=== PATIENT | male | born 1975 | race Two or more races ===

== ENCOUNTER 2019-02-20 16:09 | Inpatient (IN) | payer OTHER ==
[2019-02-20 18:52] VITALS: BMI 38.0
--- NOTE | 2019-02-20 20:43 | HP ---
COWS - Scale Resting Pulse: 0= [place] 80 or Below Sweatin= Chills/Flushing Restless Observation: 1= Difficult to Sit Still Pupil Size: 1= Pupils >than Normal Bone or Joint Aches: 1= Mild Discomfort Runny Nose/ Eye Tearin= Nasal Congestion GI Upset > 30mins: 1= Stomach Cramp Tremor Observation: 2= Slight Tremor Visible Yawning Observation: 0= None Anxiety or Irritability: 1=Feels Anxious/Irritable Goose Flesh Skin: 0=Smooth Skin COWS Score: 9 CIWA Score - Admission Criteria [facility] Guidelines: Admission for Medically Managed Detox: Requires at least one of the followin. CIWA greater than 12 2. Seizures within the past 24 hours 3. Delirium tremens within the past 24 hours 4. Hallucinations within the past 24 hours 5. Acute intervention needed for co occurring medical disorder 6. Acute intervention needed for co occurring psychiatric disorder 7. Severe withdrawal that cannot be handled at a lower level of care (continued vomiting, continued diarrhea, abnormal vital signs) requiring intravenous medication and/or fluids 8. Admitting History and Physical - Primary Care Physician PCP: none - Admission Chief Complaint: I have been using heroin, methadoneand crack over the past 10 days and I need to detox. History of Present Illness: 43 y/o m pt with h/o heroin dep (nasal Use )since age 37. Pt has been drug free x 8m and then relapsed again recently .Now pt is seeking detox . Pt was sent for detox by [facility]. The pt has pending court case and states he has to detox. History Source: Patient Limitations to Obtaining History: No Limitations - Past Medical History Gastrointestinal: Yes: Constipation Psych: Yes: Addictions (heroin/ crack-cocaine/ alcohol) Musculoskeletal: Yes: Chronic low back pain - Past Surgical History Past Surgical History: Yes: None - Smoking History Smoking history: Current every day smoker Have you smoked in the past 12 months: Yes Aproximately how many cigarettes per day: 10 - Alcohol/Substance Use Hx Alcohol Use: Yes History of Substance Use: reports: Cocaine, Heroin Date of Last Use: 02/18/19 - Social History Usual Living Arrangement: Yes: Other (residential program) Do you think of yourself as: Straight/Heterosexual ADL: Independent History of Recent Travel: No Admission ROS S - HPI Chief Complaint: I need to detox from heroin/methadone . Allergies/Adverse Reactions: Allergies Allergy/AdvReac Type Severity Reaction Status Date / Time No Known Allergies Allergy Verified 02/20/19 18:42 History of Present Illness: see HPI, PMHX Exam Limitations: No Limitations - Ebola screening Have you traveled outside of the country in the last 21 days: No (N) Have you had contact with anyone from an Ebola affected area: No Have you been sick,other than usual withdrawal symptoms: No Do you have a fever: No - Review of Systems Constitutional: Chills, Malaise, Changes in sleep EENT: reports: Nose Congestion Respiratory: reports: No Symptoms reported Cardiac: reports: No Symptoms Reported GI: reports: Abdominal cramping Musculoskeletal: reports: Back Pain Integumentary: reports: No Symptoms Reported Neuro: reports: No Symptoms reported Endocrine: reports: No Symptoms Reported Hematology: reports: No Symptoms Reported Psychiatric: reports: No Sypmtoms Reported Other Systems: Reviewed and Negative Patient History - Patient Medical History Hx Anemia: No Hx Asthma: No Hx Chronic Obstructive Pulmonary Disease (COPD): No Hx Cancer: No Hx Cardiac Disorders: No Hx Congestive Heart Failure: No Hx Hypertension: No Hx Hypercholesterolemia: Yes Hx Pacemaker: No HX Cerebrovascular Accident: No Hx Seizures: No Hx Dementia: No Hx Diabetes: No Hx Gastrointestinal Disorders: No Hx Liver Disease: No Hx Genitourinary Disorders: No Hx Sexually Transmitted Disorders: No Hx Renal Disease (ESRD): No Hx Thyroid Disease: No Hx Human Immunodeficiency Virus (HIV): No Hx Hepatitis C: No Hx Depression: No Hx Suicide Attempt: No Hx Bipolar Disorder: No Hx Schizophrenia: No - Patient Surgical History Past Surgical History: No Hx Neurologic Surgery: No Hx Cataract Extraction: No Hx Cardiac Surgery: No Hx Lung Surgery: No Hx Breast Surgery: No Hx Breast Biopsy: No Hx Abdominal Surgery: No Hx Appendectomy: No Hx Cholecystectomy: No Hx Genitourinary Surgery: No Hx Section: No Hx Orthopedic Surgery: No - PPD History Date: 07/04/14 - Reproductive History Patient is a Female of Child Bearing Age (11 -55 yrs old): No - Smoking Cessation Smoking history: Current every day smoker Have you smoked in the past 12 months: Yes Aproximately how many cigarettes per day: 10 Cigars Per Day: 0 Hx Chewing Tobacco Use: No Initiated information on smoking cessation: Yes 'Breaking Loose' booklet given: 02/20/19 - Substance & Tx. History Hx Alcohol Use: Yes Hx Substance Use: Yes Substance Use Type: Alcohol, Cocaine, Heroin Hx Substance Use Treatment: Yes - Substances abused Alcohol Substance route: Oral Frequency: Daily Amount used: 4 to 6 cans Age of first use: 28 Date of last use: 02/20/19 Crack Other (specify): cocaine Substance route: Smoking Frequency: Daily Amount used: 60 to 100 dollars Age of first use: 39 Date of last use: 02/19/19 Heroin Substance route: Inhalation Frequency: Daily Amount used: 5 bags Age of first use: 40 Date of last use: 02/18/19 Non-Rx Methadone Substance route: Oral Frequency: 1-2 times per week Age of first use: 38 Date of last use: 02/18/19 Admission Physical Exam [facility] - Vital Signs Vital Signs: Vital Signs - 24 hr 02/20/19 02/20/19 18:41 19:29 Temperature 97.2 F L 97.2 F L Pulse Rate 70 70 Respiratory 16 16 Rate Blood Pressure 128/86 128/86 - Physical General Appearance: Yes: Obese, Irritable, Anxious HEENTM: Yes: EOMI, Hearing grossly Normal, Normocephalic, Normal Voice, LYNNE Neck: Yes: No masses,lesions,Nodules, Supple, Trachea in good position Breast: Yes: Within Normal Limits Cardiology: Yes: Regular Rhythm, Regular Rate, S1, S2 Abdominal: Yes: Non Tender, Soft, Protuberent Genitourinary: Yes: Within Normal Limits Back: Yes: Decreased Range of Motion Musculoskeletal: Yes: Back pain Extremities: Yes: Tremors (mild) Neurological: Yes: trim mounter II-XII NML intact, Fully Oriented, Alert, Motor Strength 5/5 Integumentary: Yes: Other (lbil lower extremity small ulcers) Cleared for Admission [facility] - Detox or Rehab [facility] Level of Care: Medically Managed Detox Regimen/Protocol: Methadone/Valium Breathalyzer - Breathalyzer Breathalyzer: 0 Urine Drug Screen - Test Device Lot number: [id number] Expiration date: 10/03/20 - Control Is test valid?: Yes - Results Drug screen NEGATIVE: No Urine drug screen results: FEN-Fentanyl, MTD-Methadone, BZO-Benzodiazepines, BUP -Suboxone Inpatient Rehab Admission - Rehab Decision to Admit Inpatient rehab admission?: No
[2019-02-20] MEDS ORDERED: ACETAMINOPHEN 325 MG TABLET (FP) PO PRN ×2 (21:08)
[2019-02-20] MEDS ORDERED: BACLOFEN 10 MG TABLET (FP) PO PRN (21:08)
[2019-02-20] MEDS ORDERED: MELATONIN 5 MG TABLETS PO PRN (21:08)
[2019-02-20] MEDS ORDERED: BISMUTH SUBSALICYLATE 524 MG/30 ML UD PO PRN (21:08)
[2019-02-20] MEDS ORDERED: METHOCARBAMOL 500 MG TABLET PO PRN (21:08)
[2019-02-20] MEDS ORDERED: METHADONE HCL 10 MG TABLET (FOR DETOX USE ONLY) PO ONE (21:08)
[2019-02-20] MEDS ORDERED: MAGNESIUM HYDROX 2400MG/30ML ORAL SUSPENSION 30 ML CUP PO PRN (21:08)
[2019-02-20] MEDS ORDERED: hydrOXYzine PAMOATE 25 MG CAPSULE (FP) PO PRN (21:08)
[2019-02-20] MEDS ORDERED: cloNIDine HCL 0.1 MG TABLET PO PRN (21:08)
[2019-02-20] MEDS ORDERED: IBUPROFEN 400 MG TABLET (FP) PO PRN (21:08)
[2019-02-20] MEDS ORDERED: MAG HYDROX/AL HYDROX/SIMETH 30 ML UNIT-DOSE CUP PO PRN (21:08)
[2019-02-20] MEDS ORDERED: MENTHOL/PHENOL 1 EACH UD MM PRN (21:08)
[2019-02-20] MEDS ORDERED: MAGNESIUM CITRATE 300 ML BOTTLE PO PRN (21:08)
[2019-02-20] MEDS ORDERED: diazePAM 5 MG TABLET PO PRN (21:12)
[2019-02-20] MEDS: THIAMINE HCL 100 MG TABLET (FP) PO SCH (21:41)
[2019-02-21 09:55] LABS: HEMATOCRIT 37.1 % (35.4-49); HEMOGLOBIN 12.6 GM/dL (11.7-16.9); MCH 29.7 pg (25.7-33.7); MEAN CELL VOLUME 87.5 fl (80-96); MEAN PLT VOLUME 8.9 fl (7.5-11.1); PLATELET COUNT 249 K/MM3 (134-434); RBC 4.24 M/mm3 (4.00-5.60); RDW 13.5 % (11.9-15.9); WHITE BLOOD COUNT 7.2 K/mm3 (4.0-10.0)
[2019-02-21] MEDS ORDERED: METHADONE HCL 5 MG TABLET (FOR DETOX USE ONLY) PO ONE (10:00)
[2019-02-21 10:16] LABS: ALBUMIN 2.8 g/dl (3.4-5.0); BILIRUBIN,TOTAL 0.3 mg/dL (0.2-1); BLOOD UREA NITROGEN 9.6 mg/dL (7-18); CALCIUM 8.6 mg/dL (8.5-10.1); CREATININE 0.8 mg/dL (0.55-1.3); POTASSIUM 4.2 mmol/L (3.5-5.1); TOT PROT 6.4 g/dl (6.4-8.2)
[2019-02-21] MEDS: PRENATAL VITAMINS W/ FOLIC ACID TABLET (FP) PO SCH (10:35)
--- NOTE | 2019-02-21 11:38 | PN ---
S CIWA - CIWA Score Nausea/Vomitin-Mild Nausea/No Vomiting Muscle Tremors: 3 Anxiety: 2 Agitation: 1-Slight > Activity Paroxysmal Sweats: 2 Orientation: 0-Oriented Tacttile Disturbances: 0-None Auditory Disturbances: 0-None Visual Disturbances: 0-None Headache: 1-Very Mild CIWA-Ar Total Score: 10 S COWS - Scale Resting Pulse: 0= [place] 80 or Below Sweatin= Chills/Flushing Restless Observation: 0= Sits Still Pupil Size: 1= Pupils >than Normal Bone or Joint Aches: 1= Mild Discomfort Runny Nose/ Eye Tearin= None GI Upset > 30mins: 1= Stomach Cramp Tremor Observation of Outstretched Hands: 1= Tremor [place], Not Seen Yawning Observation: 0= None Anxiety or Irritability: 1=Feels Anxious/Irritable Goose Flesh Skin: 0=Smooth Skin COWS Score: 6 BHS Progress Note (SOAP) Subjective: 43 years old male admitted on 02/20/19 for opiate withdrawal sx management treating with methadone detox regimen patient tolerated well the patient has both suboxone and methadone in urine tox upon admission prefers librium instead of valium and clonidine prn for alcohol withdrawal sx management discontinue valium and clonodine begin librium prn Objective: 02/21/19 11:35 Vital Signs Temperature 96 F L 02/21/19 09:18 Pulse Rate 75 02/21/19 09:18 Respiratory Rate 18 02/21/19 09:18 Blood Pressure 105/73 02/21/19 09:18 O2 Sat by Pulse Oximetry (%) Laboratory Last Values WBC 7.2 K/mm3 (4.0-10.0) 02/21/19 08:00 RBC 4.24 M/mm3 (4.00-5.60) 02/21/19 08:00 Hgb 12.6 GM/dL (11.7-16.9) 02/21/19 08:00 Hct 37.1 % (35.4-49) 02/21/19 08:00 MCV 87.5 fl (80-96) 02/21/19 08:00 MCH 29.7 pg (25.7-33.7) 02/21/19 08:00 MCHC 34.0 g/dl (32.0-35.9) 02/21/19 08:00 RDW 13.5 % (11.9-15.9) 02/21/19 08:00 Plt Count 249 K/MM3 (134-434) 02/21/19 08:00 MPV 8.9 fl (7.5-11.1) 02/21/19 08:00 Sodium 142 mmol/L (136-145) 02/21/19 08:00 Potassium 4.2 mmol/L (3.5-5.1) 02/21/19 08:00 Chloride 106 mmol/L (98-107) 02/21/19 08:00 Carbon Dioxide 28 mmol/L (21-32) 02/21/19 08:00 Anion Gap 8 MMOL/L (8-16) 02/21/19 08:00 BUN 9.6 mg/dL (7-18) 02/21/19 08:00 Creatinine 0.8 mg/dL (0.55-1.3) 02/21/19 08:00 Est GFR (CKD-EPI)AfAm 127.70 02/21/19 08:00 Est GFR (CKD-EPI)NonAf 110.18 02/21/19 08:00 Random Glucose 198 mg/dL (74-106) H 02/21/19 08:00 Calcium 8.6 mg/dL (8.5-10.1) 02/21/19 08:00 Total Bilirubin 0.3 mg/dL (0.2-1) 02/21/19 08:00 AST 44 U/L (15-37) H 02/21/19 08:00 ALT 82 U/L (13-61) H 02/21/19 08:00 Alkaline Phosphatase 83 U/L (45-117) 02/21/19 08:00 Total Protein 6.4 g/dl (6.4-8.2) 02/21/19 08:00 Albumin 2.8 g/dl (3.4-5.0) L 02/21/19 08:00 lab noted 02/21/19 11:37 bgm x 1 discontinue regular diet begin no concentrated sugar diet encourage weight loss Assessment: 02/21/19 11:38 alcohol and opiate withdrawal 02/21/19 11:38 Plan: librium prn and methadone detox regimens
[2019-02-21] MEDS: chlordiazePOXIDE 5 MG CAPSULE PO PRN ×2 (14:03→22:12)
[2019-02-21] MEDS: THIAMINE HCL 100 MG TABLET (FP) PO SCH (22:12)
[2019-02-22] MEDS: chlordiazePOXIDE HCL 10 MG CAPSULE PO PRN ×2 (07:55→19:34)
[2019-02-22] MEDS ORDERED: METHADONE HCL 10 MG TABLET (FOR DETOX USE ONLY) PO ONE (10:00)
[2019-02-22] MEDS: PRENATAL VITAMINS W/ FOLIC ACID TABLET (FP) PO SCH (10:21)
--- NOTE | 2019-02-22 13:01 | PN ---
BHS COWS - Scale Resting Pulse: 1= [place] 81-100 Sweatin= Chills/Flushing Restless Observation: 1= Difficult to Sit Still Pupil Size: 1= Pupils >than Normal Bone or Joint Aches: 0= None Runny Nose/ Eye Tearin= None GI Upset > 30mins: 0= None Tremor Observation of Outstretched Hands: 0= None Yawning Observation: 0= None Anxiety or Irritability: 1=Feels Anxious/Irritable Goose Flesh Skin: 0=Smooth Skin COWS Score: 5 BHS Progress Note (SOAP) Subjective: Pt completing opioid detox- says he is going home tomorrow. d/w MAT methadone/ suboxone. No home meds. O: Vital Signs - 24 hr 02/21/19 02/21/19 02/21/19 13:28 18:00 23:45 Temperature 98.5 F 97.1 F L 96.5 F L Pulse Rate 78 76 85 Respiratory 18 18 18 Rate Blood Pressure 111/69 111/70 104/65 02/22/19 02/22/19 02/22/19 03:30 06:40 09:09 Temperature 98.9 F 97.9 F Pulse Rate 72 76 Respiratory 18 18 18 Rate Blood Pressure 110/65 102/61 Laboratory Tests 02/21/19 02/21/19 02/21/19 08:00 08:00 08:00 WBC 7.2 RBC 4.24 Hgb 12.6 Hct 37.1 MCV 87.5 MCH 29.7 MCHC 34.0 RDW 13.5 Plt Count 249 MPV 8.9 Sodium 142 Potassium 4.2 Chloride 106 Carbon Dioxide 28 Anion Gap 8 BUN 9.6 Creatinine 0.8 Est GFR (CKD-EPI)AfAm 127.70 Est GFR (CKD-EPI)NonAf 110.18 POC Glucometer Random Glucose 198 H Fasting Glucose Calcium 8.6 Total Bilirubin 0.3 AST 44 H ALT 82 H Alkaline Phosphatase 83 Total Protein 6.4 Albumin 2.8 L RPR Titer Nonreactive 02/21/19 02/22/19 12:55 08:00 WBC RBC Hgb Hct MCV MCH MCHC RDW Plt Count MPV Sodium Potassium Chloride Carbon Dioxide Anion Gap BUN Creatinine Est GFR (CKD-EPI)AfAm Est GFR (CKD-EPI)NonAf POC Glucometer 206 Random Glucose Fasting Glucose 105 Calcium Total Bilirubin AST ALT Alkaline Phosphatase Total Protein Albumin RPR Titer a/p: continue opioid detox protocol with methadone d/c anticipated for tomorrow
[2019-02-22 18:18] LABS: PH,URINE 7.5 (5.0-8.0); URINE APPEARANCE CLEAR; URINE BILIRUBIN NEGATIVE (NEGATIVE); URINE COLOR YELLOW; URINE GLUCOSE (UA) NEGATIVE (NEGATIVE); URINE KETONE NEGATIVE (NEGATIVE); URINE LEUK ESTERASE NEGATIVE (NEGATIVE); URINE NITRITE NEGATIVE (NEGATIVE); URINE PROTEIN NEGATIVE (NEGATIVE); URINE UROBILINOGEN 0.2 mg/dL (0.2-1.0)
[2019-02-22] MEDS: THIAMINE HCL 100 MG TABLET (FP) PO SCH (22:05)
[2019-02-23] MEDS ORDERED: chlordiazePOXIDE HCL 10 MG CAPSULE PO PRN (00:01)
[2019-02-23] MEDS ORDERED: METHADONE HCL 5 MG TABLET (FOR DETOX USE ONLY) PO ONE (06:00)
[2019-02-23 09:26] VITALS: PULSE 81
[2019-02-23] MEDS: PRENATAL VITAMINS W/ FOLIC ACID TABLET (FP) PO SCH (10:32)
[2019-02-23 13:40] VITALS: BP 102/68; TEMP 98
--- NOTE | 2019-02-23 13:43 | DS ---
[facility] Detox Discharge Summary Admission Date: 02/20/19 Discharge Date: 02/23/19 - History Present History: Alcohol Dependence, Cocaine Dependence, Opioid Dependence Additional Comments: Pt is medically cleared and is discharged today. Pt completed the detox protocol. Pt is encouraged to follow-up with an outpatient CD program and also to follow-up with his pmd. Pt verbalized understanding. Pt is alert and oriented x3 and in no acute respiratory distress. Pertinent Past History: h/o opiates use disorder. - Physical Exam Results Vital Signs: Vital Signs Temperature 98.0 F 02/23/19 13:39 Pulse Rate 81 02/23/19 13:39 Respiratory Rate 18 02/23/19 13:39 Blood Pressure 102/68 02/23/19 13:39 O2 Sat by Pulse Oximetry (%) Vital Signs 02/23/19 02/23/19 02/23/19 06:39 09:25 13:39 Temperature 100.3 F H 97.9 F 98.0 F Pulse Rate 76 81 81 Respiratory 20 20 18 Rate Blood Pressure 98/53 L 109/70 102/68 Laboratory Last Values WBC 7.2 K/mm3 (4.0-10.0) 02/21/19 08:00 RBC 4.24 M/mm3 (4.00-5.60) 02/21/19 08:00 Hgb 12.6 GM/dL (11.7-16.9) 02/21/19 08:00 Hct 37.1 % (35.4-49) 02/21/19 08:00 MCV 87.5 fl (80-96) 02/21/19 08:00 MCH 29.7 pg (25.7-33.7) 02/21/19 08:00 MCHC 34.0 g/dl (32.0-35.9) 02/21/19 08:00 RDW 13.5 % (11.9-15.9) 02/21/19 08:00 Plt Count 249 K/MM3 (134-434) 02/21/19 08:00 MPV 8.9 fl (7.5-11.1) 02/21/19 08:00 Sodium 142 mmol/L (136-145) 02/21/19 08:00 Potassium 4.2 mmol/L (3.5-5.1) 02/21/19 08:00 Chloride 106 mmol/L (98-107) 02/21/19 08:00 Carbon Dioxide 28 mmol/L (21-32) 02/21/19 08:00 Anion Gap 8 MMOL/L (8-16) 02/21/19 08:00 BUN 9.6 mg/dL (7-18) 02/21/19 08:00 Creatinine 0.8 mg/dL (0.55-1.3) 02/21/19 08:00 Est GFR (CKD-EPI)AfAm 127.70 02/21/19 08:00 Est GFR (CKD-EPI)NonAf 110.18 02/21/19 08:00 POC Glucometer 206 UNITS (80-120) 02/21/19 12:55 Random Glucose 198 mg/dL (74-106) H 02/21/19 08:00 Fasting Glucose 105 mg/dL (74-106) 02/22/19 08:00 Calcium 8.6 mg/dL (8.5-10.1) 02/21/19 08:00 Total Bilirubin 0.3 mg/dL (0.2-1) 02/21/19 08:00 AST 44 U/L (15-37) H 02/21/19 08:00 ALT 82 U/L (13-61) H 02/21/19 08:00 Alkaline Phosphatase 83 U/L (45-117) 02/21/19 08:00 Total Protein 6.4 g/dl (6.4-8.2) 02/21/19 08:00 Albumin 2.8 g/dl (3.4-5.0) L 02/21/19 08:00 Urine Color Yellow 02/22/19 13:45 Urine Appearance Clear 02/22/19 13:45 Urine pH 7.5 (5.0-8.0) D 02/22/19 13:45 Ur Specific Mobile 1.019 (1.010-1.035) 02/22/19 13:45 Urine Protein Negative (NEGATIVE) 02/22/19 13:45 Urine Glucose (UA) Negative (NEGATIVE) 02/22/19 13:45 Urine Ketones Negative (NEGATIVE) 02/22/19 13:45 Urine Blood Negative (NEGATIVE) 02/22/19 13:45 Urine Nitrite Negative (NEGATIVE) 02/22/19 13:45 Urine Bilirubin Negative (NEGATIVE) 02/22/19 13:45 Urine Urobilinogen 0.2 mg/dL (0.2-1.0) 02/22/19 13:45 Ur Leukocyte Esterase Negative (NEGATIVE) 02/22/19 13:45 RPR Titer Nonreactive (NONREACTIVE) 02/21/19 08:00 Labs noted. Pertinent Admission Physical Exam Findings: withdrawal symptoms. - Treatment Hospital Course: Detox Protocol Followed, Detoxed Safely, Responded well, Discharged Condition Good - Medication Discharge Medications: Ambulatory Orders Atorvastatin Ca [Lipitor] 20 mg PO HS 07/02/14 - Diagnosis (1) Cocaine dependence Current Visit: No Status: Acute (2) Hypercholesterolemia Current Visit: No Status: Acute (3) Nicotine addiction Current Visit: No Status: Acute (4) Alcohol use disorder Current Visit: Yes Status: Chronic (5) Heroin use disorder, mild, abuse Current Visit: Yes Status: Chronic - AMA Did Patient Leave Against Medical Advice: No
== END 2019-02-23 12:00 | disposition home or self-care (01) | DRG 773 ==
LOC: YASAS 16:09 → Y3N 20:54
PROVIDERS: ADMIT Allergy & Immunology; ATTEND Allergy & Immunology
PROC: HZ2ZZZZ Detoxification Services for Substance Abuse Treatment (ICD-10-PCS; principal; 2019-02-20)
DX: F11.23 Opioid dependence with withdrawal (principal); F10.230 Alcohol dependence with withdrawal, uncomplicated; F14.20 Cocaine dependence, uncomplicated; F17.210 Nicotine dependence, cigarettes, uncomplicated; E78.00 Pure hypercholesterolemia, unspecified; E66.9 Obesity, unspecified; Z68.38 Body mass index [BMI] 38.0-38.9, adult
CPT/HCPCS: 36415; 80053; 81003; 82947; 82962; 85027; 86593; J0475